=== PATIENT | female | born 1980 | race Caucasian/White ===

== ENCOUNTER → 2017-02-15 | Outpatient (CLI) | payer OTHER ==
[~2017-02-15] MED LIST: NORCO 7.5-3251 EACH PO
== END ==
LOC: KOH-I 09:20
DX: R10.11 Right upper quadrant pain (principal); N94.6 Dysmenorrhea, unspecified; N92.0 Excessive and frequent menstruation with regular cycle; K76.0 Fatty (change of) liver, not elsewhere classified; Z90.49 Acquired absence of other specified parts of digestive tract
CPT/HCPCS: 76705

== ENCOUNTER 2017-03-15 14:02 | Emergency (ER) | payer OTHER ==
[2017-03-15 15:16] LABS: HEMOGLOBIN 14.1 gm/dl (12.3-15.3); RED BLOOD COUNT 4.53 M/UL (4.00-5.10); WHITE BLOOD COUNT 8.2 K/UL (4.5-11.0)
[2017-03-15 15:51] LABS: BUN/CREATININE RATIO 22 (0-10)
== END 2017-03-15 19:05 | disposition home or self-care (01) ==
LOC: ER1 14:02
PROVIDERS: Specialist/Technologist Athletic Trainer
DX: I10 Essential (primary) hypertension (principal); R74.0 Nonspecific elevation of levels of transaminase and lactic acid dehydrogenase [LDH]; E11.9 Type 2 diabetes mellitus without complications; E03.9 Hypothyroidism, unspecified; E66.01 Morbid (severe) obesity due to excess calories; Z90.49 Acquired absence of other specified parts of digestive tract; Z88.0 Allergy status to penicillin; Z88.2 Allergy status to sulfonamides; Z91.040 Latex allergy status; Z79.84 Long term (current) use of oral hypoglycemic drugs; Z79.899 Other long term (current) drug therapy
CPT/HCPCS: 36415; 80053; 81001; 82550; 82553; 83874; 84484; 85025; 93005; 99283

== ENCOUNTER 2017-07-31 11:25 | Emergency (ER) | payer OTHER ==
[2017-07-31 12:54] LABS: RED BLOOD COUNT 4.85 M/UL (4.00-5.10); WHITE BLOOD COUNT 6.7 K/UL (4.5-11.0)
[2017-07-31 13:06] LABS: BUN/CREATININE RATIO 18 (0-10)
== END 2017-07-31 16:40 | disposition home or self-care (01) ==
LOC: ER1 11:25
PROVIDERS: Nurse Practitioner Family
DX: R10.84 Generalized abdominal pain (principal); K76.0 Fatty (change of) liver, not elsewhere classified; R11.0 Nausea; I10 Essential (primary) hypertension; E11.9 Type 2 diabetes mellitus without complications; Z88.1 Allergy status to other antibiotic agents; Z88.2 Allergy status to sulfonamides; Z90.49 Acquired absence of other specified parts of digestive tract; Z98.890 Other specified postprocedural states
CPT/HCPCS: 36415; 71010; 80053; 81001; 82150; 83605; 83690; 84703; 85025; 87086; 96361; 96374; 96375; 99284; J2270; J2405; J7050; Q9962

== ENCOUNTER → 2021-03-01 | Outpatient (CLI) | payer OTHER | LOC: KOH-I 08:00 → CT 08:00 → KOH-I 14:22 | DX: K43.9 Ventral hernia without obstruction or gangrene (principal); R91.8 Other nonspecific abnormal finding of lung field | CPT/HCPCS: 74176 ==

== ENCOUNTER 2021-07-08 09:59 | Inpatient (IN) | payer OTHER ==
[~2021-07-08] VITALS: Ht 160 cm; Wt 108.9 kg
[2021-07-08 10:56] LABS: HEMOGLOBIN 16.7 gm/dl (12.3-15.3); RED BLOOD COUNT 5.27 M/UL (4.00-5.10); WHITE BLOOD COUNT 4.1 K/UL (4.5-11.0)
[2021-07-08 11:30] LABS: BUN/CREATININE RATIO 14 (0-10)
[2021-07-08] MEDS ORDERED: PROTONIX 40 MG40 M1 PO (13:35)
[2021-07-08] MEDS ORDERED: JANUVIA100 MG PO (13:36)
[2021-07-08] MEDS ORDERED: SINGULAIR10 MG PO (13:36)
[2021-07-08] MEDS ORDERED: AMLODIPINE BESYL5 MG PO (13:37)
[2021-07-08] MEDS ORDERED: GLIPIZIDE ER5 MG PO ×2 (13:39→13:40)
[2021-07-08] MEDS ORDERED: DRISDOL1250 MCG PO (13:41)
[2021-07-08] MEDS ORDERED: LEVOTHYROXINE150 MCG PO (13:42)
[2021-07-08] MEDS ORDERED: METFORMIN HCL500 M2 PO ×2 (13:43)
[2021-07-08] MEDS ORDERED: NORETHINDRONE0.35 MG PO (13:44)
[2021-07-08] MEDS ORDERED: CYCLOBENZAPRINE10 MG PO (13:45)
[2021-07-08] MEDS ORDERED: ZINC GUMMIES PO (13:49)
[2021-07-08] MEDS ORDERED: DAILY VALUE1 EACH PO (13:50)
[2021-07-08] MEDS ORDERED: ASPIRIN EC81 MG PO (13:51)
[2021-07-08] MEDS ORDERED: VITAMIN D350 MC3 PO (13:54)
[2021-07-08] MEDS ORDERED: HYDROCHLOROTHIA25 MG PO (14:09)
[2021-07-09 07:16] LABS: HEMOGLOBIN 14.7 gm/dl (12.3-15.3); RED BLOOD COUNT 4.66 M/UL (4.00-5.10); WHITE BLOOD COUNT 2.7 K/UL (4.5-11.0)
[2021-07-09 07:33] LABS: BUN/CREATININE RATIO 16 (0-10)
[2021-07-10 05:03] LABS: BUN/CREATININE RATIO 19 (0-10)
[2021-07-11 04:12] LABS: HEMOGLOBIN 14.2 gm/dl (12.3-15.3); RED BLOOD COUNT 4.49 M/UL (4.00-5.10)
[2021-07-11 04:15] LABS: WHITE BLOOD COUNT 6.3 K/UL (4.5-11.0)
[2021-07-11 04:42] LABS: BUN/CREATININE RATIO 26 (0-10)
[2021-07-12 06:51] LABS: HEMOGLOBIN 14.9 gm/dl (12.3-15.3); RED BLOOD COUNT 4.75 M/UL (4.00-5.10); WHITE BLOOD COUNT 6.8 K/UL (4.5-11.0)
[2021-07-12 07:42] LABS: BUN/CREATININE RATIO 27 (0-10)
[2021-07-12] MEDS ORDERED: VENTOLIN HFA 66.7 GM INH (10:07)
[2021-07-12] MEDS ORDERED: DECADRON6 MG PO (10:07)
== END 2021-07-12 15:34 | disposition home or self-care (01) | DRG 177 ==
LOC: ER1 09:59 → MED SURG 4 12:46 → CDU 12:46 → MED SURG 4 17:36
PROVIDERS: Emergency Medicine; Physician Assistant; Physician Assistant Medical; ADMIT Internal Medicine Infectious Disease
PROC: 8E0ZXY6 Isolation (ICD-10-PCS; principal; 2021-07-08)
PROC: 3E0333Z Introduction of Anti-inflammatory into Peripheral Vein, Percutaneous Approach (ICD-10-PCS; 2021-07-08)
DX: U07.1 COVID-19 (principal); J12.82 Pneumonia due to coronavirus disease 2019; J96.01 Acute respiratory failure with hypoxia; A09 Infectious gastroenteritis and colitis, unspecified; E11.65 Type 2 diabetes mellitus with hyperglycemia; E87.6 Hypokalemia; D69.6 Thrombocytopenia, unspecified; K21.9 Gastro-esophageal reflux disease without esophagitis; E78.5 Hyperlipidemia, unspecified; I10 Essential (primary) hypertension; E03.9 Hypothyroidism, unspecified; R94.5 Abnormal results of liver function studies; E86.0 Dehydration; Z79.4 Long term (current) use of insulin; Z79.82 Long term (current) use of aspirin; Z79.899 Other long term (current) drug therapy; Z90.49 Acquired absence of other specified parts of digestive tract; Z88.0 Allergy status to penicillin; Z88.2 Allergy status to sulfonamides; Z88.8 Allergy status to other drugs, medicaments and biological substances; Z91.040 Latex allergy status
CPT/HCPCS: 36415; 36600; 71045; 80048; 80053; 80307; 81001; 82550; 82553; 82728; 82803; 82962; 83036; 83605; 83615; 83735; 83874; 84132; 84484; 84703; 85025; 85027; 85379; 86140; 87040; 93005; 94640; 94664; 94760; 96374; 99285; J0456; J0696; J1100; J1200; J1650; J2405; J2930; J7030; U0002

== ENCOUNTER → 2021-08-24 | Outpatient (CLI) | payer OTHER ==
[~2021-08-24] MED LIST changes: +AMLODIPINE BESYL5 MG PO; +ASPIRIN EC81 MG PO; +CYCLOBENZAPRINE10 MG PO; +DAILY VALUE1 EACH PO; +DECADRON6 MG PO; +DRISDOL1250 MCG PO; +GLIPIZIDE ER5 MG PO; +HYDROCHLOROTHIA25 MG PO; +JANUVIA100 MG PO; +LEVOTHYROXINE150 MCG PO; +METFORMIN HCL500 M2 PO; +NORETHINDRONE0.35 MG PO; +PROTONIX 40 MG40 M1 PO; +SINGULAIR10 MG PO; +VENTOLIN HFA 66.7 GM INH; +VITAMIN D350 MC3 PO; +ZINC GUMMIES PO
== END ==
LOC: KOH-I 08:00
DX: R10.10 Upper abdominal pain, unspecified (principal); M54.50 Low back pain, unspecified; M51.36 Other intervertebral disc degeneration, lumbar region; K43.9 Ventral hernia without obstruction or gangrene
CPT/HCPCS: 72100; 74176